=== PATIENT | female | born 1995 | race Caucasian/White ===

== ENCOUNTER → 2016-10-13 | Outpatient (CLI) | payer MEDICAID ==
--- NOTE | 2016-10-13 16:19 | RADIOLOGY REPORT (SQ) ---
EXAM DESCRIPTION: U/S OB 14+ TA/1 GEST W/DOPPLER COMPLETED DATE/TIME: 10/13/2016 3:44 pm REASON FOR STUDY: ENCOUNTER FOR SUPERVISION OF NORMAL FIRST , THIRD TRIMESTER Z34.03 ENCNT R FOR SUPRVSN OF NORMAL FIRST PREG, THIRD TRIMES COMPARISON: None. TECHNIQUE: Static and Dynamic grayscale imaging performed of gravid uterus using transabdominal appr oach. Additional selected color Doppler and spectral images recorded. All stored on PACS. LIMITATIONS: None. FINDINGS: EGA: 28 week 5 day. MARGARETH: 12/31/2016. EFW: 1231 g. PERCENTILE: 29%. YELENA: 16.8 cm. PLACENTA: Posterior. PRESENTATION: Cephalic. ANATOMY: HEART RATE: 141 beats per minute. FOUR CHAMBER HEART: Visualized. THREE VESSEL CORD: Yes. CORD INSERTION: Visualized. KIDNEYS AND BLADDER: Visualized. Appear normal. STOMACH: Visualized. Appears normal. SPINE: Normal as visualized. BRAIN AND LATERAL VENTRICLES: Visualized. Appear normal. OTHER: No other significant finding. MATERNAL ADNEXA: Maternal ovaries not visualized. CERVICAL LENGTH: Not applicable. Greater than 20 weeks. Need transvaginal study if indicated. OTHER: No other significant finding. IMPRESSION: LIVING INTRAUTERINE . ESTIMATED GESTATIONAL AGE 28 WEEK 5 DAY. NO VISUALIZED ANOMALIES. Trimester of : Third trimester - 28 weeks to delivery. TECHNICAL DOCUMENTATION: JOB ID: [id number] [employer]- All Rights Reserved
== END ==
LOC: RAD 14:29
PROVIDERS: ATTEND Nurse Practitioner Women's Health
DX: Z34.03 Encounter for supervision of normal first pregnancy, third trimester (principal)
CPT/HCPCS: 76805; 93976

== ENCOUNTER 2017-01-07 08:32 | Inpatient (IN) | payer MEDICAID ==
[2017-01-07 09:36] LABS: HEMATOCRIT 28.3 % (36.0-47.0); HEMOGLOBIN 9.6 g/dL (12.0-15.5); HGB HCT DIFFERENCE 0.5; MEAN CORPUSCULAR HEMOGLOBIN 27.6 pg (27.0-33.4); MEAN CORPUSCULAR HGB CONC 33.9 g/dL (32.0-36.0); MEAN CORPUSCULAR VOLUME 81 fl (80-97); RED BLOOD COUNT 3.48 10^6/uL (3.72-5.28); RED CELL DISTRIBUTION WIDTH 16.1 % (11.5-14.0); WHITE BLOOD COUNT 10.6 10^3/uL (4.0-10.5)
[2017-01-07] MEDS ORDERED: OXYTOCIN/NORMAL SALINE 20 UNIT/1,000 ML RTUINJ ONE ×2 (09:51→21:03)
[2017-01-07] MEDS: OXYTOCIN/NORMAL SALINE 20 UNIT/1,000 ML RTUINJ IV PRN (09:54)
[2017-01-07 10:08] LABS: APPEARANCE,URINE CLEAR; BILIRUBIN,URINE NEGATIVE (NEGATIVE); GLUCOSE, URINE NEGATIVE (NEGATIVE); KETONES,URINE NEGATIVE (NEGATIVE); LEUKOCYTE ESTERASE,URINE SMALL (NEGATIVE); NITRITE,URINE NEGATIVE (NEGATIVE); PROTEIN,URINE NEGATIVE (NEGATIVE); UROBILINOGEN,URINE NEGATIVE mg/dL (<2.0)
[2017-01-07 10:43] LABS: URINE BARBITURATES SCREEN NEGATIVE; URINE METHADONE SCREEN NEGATIVE; URINE OPIATES LOW NEGATIVE; URINE PHENCYCLIDINE SCREEN NEGATIVE
--- NOTE | 2017-01-07 14:01 | L&D Progress Notes ---
PROGRESS NOTES Datetime Report Generated by CPN: 01/07/2017 14:01 PROGRESS NOTE Impression: Reassuring Heart Rate Procedures: Artificial ROM; Sterile Vag Exam Plan: Continue Present Management; Induction Vital Signs : Reviewed Comment: coping well with ctx AROM, clear Pitocin on 20 mu VAGINAL EXAM Dilatation: 3 Dilatation: 2 Effacement: 80 Effacement: 80 Station: 0 Station: 0 Contractions: 1-2 Contractions: rare MEMBRANES Membranes: Ruptured Membranes: Intact Amniotic Fluid Color: Clear FETUS A FHR - Baseline: 135 Monitoring: External US Variability: Moderate 6-25bpm Accelerations: 15X15 Decelerations: None FHR Category: Category I Estimated Weight (gm): 2900 Presentation: Vertex SIGNATURE SIGNATURE: [id number] Assignment: Zita Callahan MD Signature: with User ID: [email or web address] : with User ID: [email or web address]
[2017-01-07] MEDS ORDERED: NALBUPHINE HCL INJ 10 MG/1 ML AMPULE ONE ×2 (15:28→15:33)
[2017-01-07] MEDS ORDERED: PROMETHAZINE HCL INJ 25 MG/1 ML VIAL ONE (15:28)
[2017-01-07] MEDS ORDERED: PROMETHAZINE HCL INJ 25 MG/1 ML VIAL IV ONE (15:29)
[2017-01-07] MEDS ORDERED: NALBUPHINE HCL INJ 10 MG/1 ML AMPULE INJ ONE (15:29)
[2017-01-07] MEDS ORDERED: EPHEDRINE SULFATE INJ 50 MG/1 ML AMPULE ONE (16:23)
[2017-01-07] MEDS ORDERED: FENTANYL/BUPIVACAINE/NS/PF 200 MCG/100 ML RTUINJ EPI ONE (16:24)
[2017-01-07] MEDS ORDERED: BUPIVACAINE HCL 0.25 % INJ/PF (2.5 MG/1 ML) 30 ML VIAL ONE (16:24)
[2017-01-07] MEDS ORDERED: LIDOCAINE 1% INJ-PF (10 MG/ML) 30 ML SDV ONE (21:03)
[2017-01-07] MEDS ORDERED: MISOPROSTOL 0.2 MG TABLET ONE (21:03)
[2017-01-07] MEDS ORDERED: DIPHENHYDRAMINE HCL 50 MG/ML VIAL IV ONE (23:07)
[2017-01-07] MEDS ORDERED: DIPHENHYDRAMINE HCL 50 MG/ML VIAL ONE (23:11)
[2017-01-07] MEDS: RINGERS SOLUTION,LACTATED 1,000 ML IV PRN (23:12)
[2017-01-08] MEDS ORDERED: DIPHENHYDRAMINE HCL 50 MG/ML VIAL IV ONE (02:50)
[2017-01-08] MEDS ORDERED: DIPHENHYDRAMINE HCL 50 MG/ML VIAL ONE (02:59)
[2017-01-08] MEDS ORDERED: FENTANYL/BUPIVACAINE/NS/PF 200 MCG/100 ML RTUINJ EPI ONE (04:08)
[2017-01-08] MEDS ORDERED: ACETAMINOPHEN 325 MG TABLET ONE (05:53)
[2017-01-08] MEDS ORDERED: PENICILLIN G-K 5 MILLION UNIT VIAL ONE (08:03)
[2017-01-08] MEDS: OXYTOCIN/NORMAL SALINE 20 UNIT/1,000 ML RTUINJ IV PRN (08:46)
[2017-01-08] MEDS: RINGERS SOLUTION,LACTATED 1,000 ML IV PRN (08:48)
[2017-01-08] MEDS ORDERED: FENTANYL CITRATE INJ/PF 100 MCG/2 ML AMPUL ONE (10:51)
[2017-01-08] MEDS ORDERED: LIDOCAINE 1% INJ-PF (10 MG/ML) 30 ML SDV ONE (10:58)
[2017-01-08 11:22] LABS: ARTERIAL BLOOD BASE EXCESS -10.6 mmol/L
[2017-01-08] MEDS ORDERED: FENTANYL CITRATE INJ/PF 100 MCG/2 ML AMPUL IV PRN (11:32)
[2017-01-08] MEDS ORDERED: IBUPROFEN 800 MG TABLET ONE (13:09)
[2017-01-08] MEDS ORDERED: BENZOCAINE/MENTHOL AEROSOL SPRAY 56 ML ONE (14:29)
[2017-01-08] MEDS ORDERED: BENZOCAINE/MENTHOL AEROSOL SPRAY 56 ML TOP PRN (15:04)
[2017-01-08] MEDS ORDERED: DIPH/PERTUSS(ACELL)/TETANUS VAC/PF 0.5 ML SYR (>=10YO) IM PRN (15:04)
[2017-01-08] MEDS ORDERED: MEASLES,MUMPS&RUBELLA VACC/PF 0.5 ML VIAL SUBCUT PRN (15:04)
[2017-01-08] MEDS ORDERED: OXYTOCIN/NORMAL SALINE 20 UNIT/1,000 ML RTUINJ IV PRN (15:04)
[2017-01-08] MEDS ORDERED: DIBUCAINE 1% OINTMENT 28 GM TP PRN (15:04)
[2017-01-08] MEDS ORDERED: ACETAMINOPHEN WITH CODEINE #3 TABLET PO PRN (15:04)
[2017-01-08] MEDS ORDERED: ZOLPIDEM TARTRATE 5 MG TABLET PO PRN (15:04)
--- NOTE | 2017-01-08 15:20 | Admission Physical ---
Datetime Report Generated by CPN: 01/08/2017 15:19 CURRENT ADMISSION Hx Assessment: The History has been Reviewed and is Current Chief Complaint: Scheduled Induction of Labor Indication for Induction: Post Dates Indication for Induction: Term, Intrauterine ; No Active Labor; Intact Membranes; Induction of Labor Admit Plan: Admit to Unit; Initiate Labor Induction Protocol ALLERGIES Medication Allergies: No Medication Allergies: No Known Allergies (01/07/2017) Medication Allergies: No Known Allergies (04/18/2014) Latex: No Latex Allergies OBSTETRICAL HISTORY EDC: 12/31/2016 00:00 : 1 Para: 0 Gestational Diabetes: No Rh Sensitization: No Incompetent Cervix: No ARIANNA: No Infertility: No ART Treatment: No Uterine Anomaly: No IUGR: No Hx Previous C/S: No Macrosomia: No Hx Loss/Stillborn: No PIH: No Hx : No Placenta Previa/Abruption: No Depression/PP Depression: No PTL/PROM: No Post Hemorrhage: No Current Procedures: Ultrasound; NST Obstetrical History Comments: G1: current SEE RECORDS Alcohol: No Marijuana : No Cocaine: No Other Illicit Drugs: No Cigarettes: Current Everyday Smoker. [id number] Cigarette Frequency: < 5 per day Advised to Stop: Yes MEDICAL HISTORY Diabetes: No Blood Transfusion: No Pulmonary Disease (Asthma, TB): No Breast Disease: No Hypertension: No Concrete Saw Operator Surgery: No Heart Disease: No Hosp/Surgery: Yes Autoimmune Disorder: No Anesthetic Complications: No Kidney Disease: No Abnormal Pap Smear: No Neuro/Epilepsy: No Psychiatric Disorders: No Other Medical Diseases: No Hepatitis/Liver Disease: No Significant Family History: No Varicosities/Phlebitis: No Trauma/Violence : No Thyroid Dysfunction: No Medical History Comments: pneumonia 2016 INFECTIOUS HISTORY Gonorrhea: No Genital Herpes: No Chlamydia: No Tuberculosis: No Syphilis: No Hepatitis: No HIV/AIDS Exposure: No Rash or Viral Illness: No HPV: No PHYSICAL EXAM General: Normal HEENT: Normal Neurologic: Normal Thyroid: Deferred Heart: Normal Lungs: Normal Breast: Normal Back: Normal Abdomen: Normal Genitourinary Exam: Normal Extremities: Normal DTRs: Normal Pelvic Type: Adequate Vital Signs: Reviewed VAGINAL EXAM Dilatation: 3 Dilatation: 2 Effacement: 80 Effacement: 80 Station: 0 Station: 0 Contraction Comments: 1-2 Contraction Comments: rare MEMBRANES Membranes: Ruptured Membranes: Intact Amniotic Fluid Color: Clear FETUS A EGA: 41.0 Monitoring: External US FHR- Baseline: 135 Variability: Moderate 6-25bpm Accelerations: 15X15 Decelerations: None FHR Category: Category I Estimated Weight (gm): 2900 Presentation: Vertex Admit Comment: Pt late to care, started @ [facility] at 28w, dated by 28 w sono not c/w lmp GBS negative varicella non-immune smoker admit to L _ D Pitocin for induction PLANS FOR LABOR AND DELIVERY Labor and Delivery: None Pain Management: Epidural Feeding Preference: Breast Benefit of Breast Feed Discussed: Yes Circumcision: Yes INFORMED CONSENT Assignment: Zita Callahan MD Signature: with User ID: Mandi : with User ID: [email or web address]
[2017-01-08] MEDS ORDERED: IBUPROFEN 800 MG TABLET PO ONE (15:30)
[2017-01-08] MEDS ORDERED: INFLUENZA ADLT QUAD (36MOS+) 2017-18 VAC 0.5 ML SYR IM PRN (16:00)
[2017-01-08] MEDS: DOCUSATE SODIUM 100 MG CAPSULE PO SCH (17:11)
[2017-01-08] MEDS: FERROUS SULFATE 325 MG TABLET PO SCH (17:12)
[2017-01-08] MEDS: ACETAMINOPHEN WITH CODEINE #3 TABLET PO PRN ×2 (18:57→23:00)
[2017-01-08] MEDS: IBUPROFEN 800 MG TABLET PO SCH (22:52)
[2017-01-09] MEDS: IBUPROFEN 800 MG TABLET PO SCH ×3 (06:02→21:14)
[2017-01-09 07:38] LABS: HGB HCT DIFFERENCE -0.7; MEAN CORPUSCULAR HEMOGLOBIN 26.7 pg (27.0-33.4); MEAN CORPUSCULAR HGB CONC 32.3 g/dL (32.0-36.0); MEAN CORPUSCULAR VOLUME 83 fl (80-97); RED BLOOD COUNT 2.67 10^6/uL (3.72-5.28); RED CELL DISTRIBUTION WIDTH 16.2 % (11.5-14.0)
[2017-01-09 07:55] LABS: WHITE BLOOD COUNT 21.8 10^3/uL (4.0-10.5)
[2017-01-09 08:05] LABS: HEMOGLOBIN 7.1 g/dL (12.0-15.5)
[2017-01-09] MEDS: SENNOSIDES/DOCUSATE 8.6-50 MG 1 EACH TABLET PO SCH (09:36)
[2017-01-09] MEDS: DOCUSATE SODIUM 100 MG CAPSULE PO SCH ×2 (09:36→18:29)
[2017-01-09] MEDS: PRENATAL VITAMIN W-O CA NO5/FE FUMARATE/FA CAPSULE PO SCH (09:36)
[2017-01-09] MEDS: FERROUS SULFATE 325 MG TABLET PO SCH ×2 (09:36→18:29)
--- NOTE | 2017-01-09 10:13 | PDOC PROGRESS REPORT ---
Subjective-OB Subjective: Post Delivery Day: 1 21 year old. Denies any needs at this time, states lochia is stable, pain is well controlled, voiding without difficulty, passing gas, tolerating diet. Physical Exam (OB) Vital Signs: Temp Pulse Resp BP Pulse Ox 97.8 F 95 16 107/62 100 01/09/17 07:49 01/09/17 07:49 01/09/17 07:49 01/09/17 07:49 01/09/17 07:49 Intake & Output 01/08/17 01/09/17 01/10/17 06:59 06:59 06:59 Weight 57.9 kg - Lochia Lochia Amount: Scant < 10 ml Lochia Color: Rubra/Red - Abdomen Description: Soft Hernia Present: No Fundal Description: Firm, Midline Fundal Height: u/u - u/2 Objective-Diagnostic Laboratory: 01/09/17 07:22 01/08/17 01/09/17 10:22 07:22 WBC 21.8 H D RBC 2.67 L Hgb 7.1 L D Hct 22.0 L MCV 83 MCH 26.7 L MCHC 32.3 RDW 16.2 H Plt Count 384 Carbonic Acid 1.15 HCO3/H2CO3 Ratio 13:1 ABG pH 7.24 L ABG pCO2 38.2 ABG pO2 21.2 L* ABG HCO3 16.0 L ABG O2 Saturation 28.0 L ABG Base Excess -10.6 FiO2 CORD BLOOD Assessment and Plan(PN) - Assessment and Plan (1) Vaginal delivery Is this a current diagnosis for this admission?: Yes Plan: routine pp care (2) Acute blood loss anemia Is this a current diagnosis for this admission?: Yes Plan: ferrous sulfate increase dietary iron (3) IV drug abuse Is this a current diagnosis for this admission?: Yes Plan: community planner - Time Spent with Patient Time with patient: Less than 15 minutes Critical Time spent with patient: Less than 15 minutes Medications reviewed and adjusted accordingly: Yes - Disposition Anticipated Discharge: Home Within: within 24 hours
[2017-01-10] MEDS: IBUPROFEN 800 MG TABLET PO SCH (05:54)
[2017-01-10 08:47] VITALS: BP 112/67
--- NOTE | 2017-01-10 09:16 | PDOC DISCHARGE SUMMARY ---
Final Diagnosis Discharge Date: 01/10/17 - Final Diagnosis (1) Vaginal delivery Is this a current diagnosis for this admission?: Yes (2) Acute blood loss anemia Is this a current diagnosis for this admission?: Yes (3) IV drug abuse Is this a current diagnosis for this admission?: Yes Discharge Data - Discharge Medication Home Medications: No122/Iron/Folic Acid [ Multi Tablet] 1 tab PO DAILY 01/07/17 Docusate Sodium [Colace 100 mg Capsule] 100 mg PO BID #60 capsule 01/10/17 Ferrous Sulfate [Feosol 325 mg Tablet] 325 mg PO BID #60 tablet 01/10/17 Ibuprofen [Motrin 800 mg Tablet] 800 mg PO Q8 #60 tablet 01/10/17 Gestational Age: 41.1 Reason(s) for Admission: Induction of Labor Procedures: NST Intrapartum Procedure(s): Spontaneous Vaginal Delivery Complication(s): Laceration-Labial Laceration-Degree: 1st - Data Baby 1 Male at 1 minute: 2 at 5 minutes: 8 Weight: 3650 kg Home with Mother: Yes Complications: No - Diagnosis Test Laboratory: Temp Pulse Resp BP Pulse Ox 98.2 F 92 14 112/67 100 01/10/17 08:00 01/10/17 08:00 01/10/17 08:00 01/10/17 08:00 01/10/17 08:00 01/07/17 01/07/17 01/09/17 09:10 09:55 07:22 RBC 3.48 L 2.67 L Hgb 9.6 L 7.1 L D Hct 28.3 L 22.0 L Urine Opiates Screen NEGATIVE - Discharge information/Instructions Discharge Activity: Activity As Tolerated, Pelvic Rest, No tub bath Discharge Diet: Regular Disposition: HOME, SELF-CARE Follow up with: [facility] in: 4, Weeks
[2017-01-10] MEDS: SENNOSIDES/DOCUSATE 8.6-50 MG 1 EACH TABLET PO SCH (10:06)
[2017-01-10] MEDS: DOCUSATE SODIUM 100 MG CAPSULE PO SCH (10:06)
[2017-01-10] MEDS: PRENATAL VITAMIN W-O CA NO5/FE FUMARATE/FA CAPSULE PO SCH (10:07)
[2017-01-10] MEDS: FERROUS SULFATE 325 MG TABLET PO SCH (10:07)
--- NOTE | 2017-01-14 17:12 | Delivery Summary ---
Del Sum A-C Datetime Report Generated by CPN: 01/14/2017 17:12 DELIVERY PERSONNEL DELIVERY PERSONNEL: [id number] Delivery Doctor:: Francine Tam CNM Labor and Delivery Nurse:: Joselito Davis RNcredit associate Nurse:: Maribel Ojeda RN Die Engraver:: Dr. Ravin Kline Nurse Practitioner:: CHARANJIT Miranda Agricultural Extension Agent/COMPONENT DESIGN ENGINEER: Isabel Beal CNA II Agricultural Extension Agent/COMPONENT DESIGN ENGINEER: Em Flood, PEDIGREE TRACER Additional Personnel: : Haley Tilley, RNC MATERNAL INFORMATION Delivery Anesthesia: Epidural Medications After Delivery: Pitocin Bolus-Please Comment; Pitocin Drip 20 Units/1000ml NSS; Other-Please Comment Estimated Blood Loss (ml): 450 Maternal Complications: Maternal Fever Provider Comments: SVDVM over vaginal laceration, ESTELLA with compound Rt hand, unable to deliver rt arm with moderate force. Attempted delivery of ant shoulder and posterior shoulder with suprapubic pressure, attempted delivery of Rt hand again, able to reach baby's elbow but unable to deliver hand. Delivery of post should after multiple attempts. Terminal mec noted, cord clamped and cut immediately and handed off for ressucitation. Cord blood and Cord gas collected. Attempted delivery of placenta, then repaired lacerations with lidocaine. Placenta then delivered spont and via chinchilla, FF immediately but excessive bleeding noted. Was then able to visualize 3-4 cm cervical laceration at 3 o'clock, applied spong and held pressure until bleeding stabilized. Dr. Gallegos to room for repair of cervix. EBL 450. Apgars 2,8, baby taken to NICU for evaluation. Mother hemodynamically stable upon leaving the room. LABOR SUMMARY EDC: 12/31/2016 00:00 No. Babies in Womb: 1 Attempted: No Labor Anesthesia: Epidural LABOR INFORMATION Reason for Induction: Post Dates Onset of Labor: 01/07/2017 13:56 Complete Dilatation: 01/08/2017 08:33 Oxytocin: Induction Group B Beta Strep: negative Antibiotics # of Doses: 1 Antibiotics Time of Last Dose: 0805 Name of Antibiotic Given: PCN Steroids Given: None Reason Steroids Not Administered: Not Applicable MEMBRANES Membranes Rupture Method: Artificial Rupture of Membranes: 01/07/2017 13:56 Length of Rupture (hr): 20.43 Amniotic Fluid Color: Clear Amniotic Fluid Amount: Small Amniotic Fluid Odor: Normal STAGES OF LABOR Stage 1 hr: 18 Stage 1 min: 37 Stage 2 hr: 1 Stage 2 min: 49 Stage 3 hr: 0 Stage 3 min: 19 Total Time in Labor hr: 20 Total Time in Labor min: 45 VAGINAL DELIVERY Episiotomy: None Laceration #1: Vaginal Laceration Extension #1: First Degree Other Laceration: labial Laceration Repair: Yes Laceration Repair Note: rt labia 1* lac repaired with chromic and lidocaine 1* vaginal repaired with chromic Dr. Gallegos called to repair cervix, 3-4 cm laceration at 3o'clock Sponge Count Correct: N/A Sharps Count Correct: Yes CSECTION DELIVERY Primary Indication: N/A Secondary Indication: N/A CSection Incidence: N/A Labor: N/A Elective: N/A CSection Incision: N/A BABY A INFORMATION Infant Delivery Date/Time: 01/08/2017 10:22 Method of Delivery: Vaginal Born in Route : No : N/A Forceps: N/A Vacuum Extraction: N/A Shoulder Dystocia : Yes SHOULDER DYSTOCIA BABY A Delivery of Head: 01/08/2017 10:19 Time Head to Delivery : 3.0 1st Intervention to Resolve: McRobert's Maneuver 2nd Intervention to Resolve: Suprapubic Pressure 3rd Intervention to Resolve: Posterior Arm Release Verify NO Fundal Pressure: No Fundal Pressure Applied Arm Under Symphisis at Del: Left Shoulder Dystocia Comments: actual time from head to body delivery was 2 min and 45 sec. PRESENTATION/POSITION BABY A Presentation: Cephalic Cephalic Presentation: Vertex Vertex Position: OA with compound hand Breech Presentation: N/A PLACENTA INFORMATION BABY A Placenta Delivery Time : 01/08/2017 10:41 Placenta Method of Delivery: Spontaneous Placenta Status: Delivered SCORES BABY A Heart Rate 1 min: >100 bpm Resp Effort 1 min: Absent Reflex Irritability 1 min: No Response Muscle Tone 1 min: Flaccid Color 1 min: Blue/Pale Resuscitation Effort 1 min: Tactile Stimulation; Oxygen; PPV/NCPAP SCORE 1 MIN: 2 Heart Rate 5 min: >100 bpm Resp Effort 5 min: Good Cry Reflex Irritability 5 min: Cough or Sneeze or Pulls Away Muscle Tone 5 min: Some Flexion of Extremities Color 5 min: Body Colon, Extremities Blue Resuscitation Effort 5 min: Tactile Stimulation SCORE 5 MIN: 8 INFANT INFORMATION BABY A Gestational Age at Delivery: 41.1 Gestational Status: Late Term- 41- 41.6 Weeks Infant Outcome : Liveborn Condition : Stable Infant Sex: Male IDENTIFICATION BABY A Infant Verification Date/Time: 01/08/2017 11:07 ID Band Number: [id number] Mother's Name Verified: Yes Infant RN Verifying Infant: Paulette BowieSAUMYA. Luek, SAUMYA WEIGHT/LENGTH BABY A Birthweight (gm): 3650 Weight (lb): 8 Weight (oz): 1 Length (in): 21.50 Infant Length (cm): 54.61 CORD INFORMATION BABY A No. Cord Vessels: 3 Nuchal Cord : N/A Cord Blood Taken: Yes-For Storage (Mom's Blood type +) Suction: Mouth; Nose ASSESSMENT BABY A Infant Complications: Shoulder Dystocia Physical Findings at Delivery: Caput Succedaneum; Molding of the Head Skin to Skin: No Skin to Skin: No Die Engraver/ALS Called : Yes Infant Care By: Alan Castano/ Alan Wyatt SALES AND MARKETING DIRECTOR Transferred To: Nursery BABY B INFORMATION : N/A SIGNATURES Assignment: Zach Gallegos MD Signature: with User ID: [email or web address] : I was personally available for consultation and serving as supervising physician for the MLP.
--- NOTE | 2017-01-15 10:45 | Delivery Summary ---
Del Sum A-C Datetime Report Generated by CPN: 01/15/2017 10:45 DELIVERY PERSONNEL DELIVERY PERSONNEL: [id number] Delivery Doctor:: Francine Tam CNM Labor and Delivery Nurse:: Joselito Davis RNdustless operator Nurse:: Maribel Ojeda RN Pug Machine Operator:: Dr. Ravin Kline Nurse Practitioner:: CHARANJIT Miranda Freight Car Inspector/PROPERTY ECONOMIST: Isabel Beal CNA II Freight Car Inspector/PROPERTY ECONOMIST: Em Flood, HOSPITALITY AIDE Additional Personnel: : Haley Tilley, RNC MATERNAL INFORMATION Delivery Anesthesia: Epidural Medications After Delivery: Pitocin Bolus-Please Comment; Pitocin Drip 20 Units/1000ml NSS; Other-Please Comment Estimated Blood Loss (ml): 450 Maternal Complications: Maternal Fever Provider Comments: SVDVM over vaginal laceration, ESTELLA with compound Rt hand, unable to deliver rt arm with moderate force. Attempted delivery of ant shoulder and posterior shoulder with suprapubic pressure, attempted delivery of Rt hand again, able to reach baby's elbow but unable to deliver hand. Delivery of post should after multiple attempts. Terminal mec noted, cord clamped and cut immediately and handed off for ressucitation. Cord blood and Cord gas collected. Attempted delivery of placenta, then repaired lacerations with lidocaine. Placenta then delivered spont and via chinchilla, FF immediately but excessive bleeding noted. Was then able to visualize 3-4 cm cervical laceration at 3 o'clock, applied spong and held pressure until bleeding stabilized. Dr. Gallegos to room for repair of cervix. EBL 450. Apgars 2,8, baby taken to NICU for evaluation. Mother hemodynamically stable upon leaving the room. LABOR SUMMARY EDC: 12/31/2016 00:00 No. Babies in Womb: 1 Attempted: No Labor Anesthesia: Epidural LABOR INFORMATION Reason for Induction: Post Dates Onset of Labor: 01/07/2017 13:56 Complete Dilatation: 01/08/2017 08:33 Oxytocin: Induction Group B Beta Strep: negative Antibiotics # of Doses: 1 Antibiotics Time of Last Dose: 0805 Name of Antibiotic Given: PCN Steroids Given: None Reason Steroids Not Administered: Not Applicable MEMBRANES Membranes Rupture Method: Artificial Rupture of Membranes: 01/07/2017 13:56 Length of Rupture (hr): 20.43 Amniotic Fluid Color: Clear Amniotic Fluid Amount: Small Amniotic Fluid Odor: Normal STAGES OF LABOR Stage 1 hr: 18 Stage 1 min: 37 Stage 2 hr: 1 Stage 2 min: 49 Stage 3 hr: 0 Stage 3 min: 19 Total Time in Labor hr: 20 Total Time in Labor min: 45 VAGINAL DELIVERY Episiotomy: None Laceration #1: Vaginal Laceration Extension #1: First Degree Other Laceration: labial Laceration Repair: Yes Laceration Repair Note: rt labia 1* lac repaired with chromic and lidocaine 1* vaginal repaired with chromic Dr. Gallegos called to repair cervix, 3-4 cm laceration at 3o'clock Sponge Count Correct: N/A Sharps Count Correct: Yes CSECTION DELIVERY Primary Indication: N/A Secondary Indication: N/A CSection Incidence: N/A Labor: N/A Elective: N/A CSection Incision: N/A BABY A INFORMATION Infant Delivery Date/Time: 01/08/2017 10:22 Method of Delivery: Vaginal Born in Route : No : N/A Forceps: N/A Vacuum Extraction: N/A Shoulder Dystocia : Yes SHOULDER DYSTOCIA BABY A Delivery of Head: 01/08/2017 10:19 Time Head to Delivery : 3.0 1st Intervention to Resolve: McRobert's Maneuver 2nd Intervention to Resolve: Suprapubic Pressure 3rd Intervention to Resolve: Posterior Arm Release Verify NO Fundal Pressure: No Fundal Pressure Applied Arm Under Symphisis at Del: Left Shoulder Dystocia Comments: actual time from head to body delivery was 2 min and 45 sec. PRESENTATION/POSITION BABY A Presentation: Cephalic Cephalic Presentation: Vertex Vertex Position: OA with compound hand Breech Presentation: N/A PLACENTA INFORMATION BABY A Placenta Delivery Time : 01/08/2017 10:41 Placenta Method of Delivery: Spontaneous Placenta Status: Delivered SCORES BABY A Heart Rate 1 min: >100 bpm Resp Effort 1 min: Absent Reflex Irritability 1 min: No Response Muscle Tone 1 min: Flaccid Color 1 min: Blue/Pale Resuscitation Effort 1 min: Tactile Stimulation; Oxygen; PPV/NCPAP SCORE 1 MIN: 2 Heart Rate 5 min: >100 bpm Resp Effort 5 min: Good Cry Reflex Irritability 5 min: Cough or Sneeze or Pulls Away Muscle Tone 5 min: Some Flexion of Extremities Color 5 min: Body [place], Extremities Blue Resuscitation Effort 5 min: Tactile Stimulation SCORE 5 MIN: 8 INFANT INFORMATION BABY A Gestational Age at Delivery: 41.1 Gestational Status: Late Term- 41- 41.6 Weeks Infant Outcome : Liveborn Condition : Stable Infant Sex: Male IDENTIFICATION BABY A Infant Verification Date/Time: 01/08/2017 11:07 ID Band Number: [id number] Mother's Name Verified: Yes Infant RN Verifying Infant: Paulette BowieSAUMYA. Luke, SAUMYA WEIGHT/LENGTH BABY A Birthweight (gm): 3650 Weight (lb): 8 Weight (oz): 1 Length (in): 21.50 Infant Length (cm): 54.61 CORD INFORMATION BABY A No. Cord Vessels: 3 Nuchal Cord : N/A Cord Blood Taken: Yes-For Storage (Mom's Blood type +) Suction: Mouth; Nose ASSESSMENT BABY A Infant Complications: Shoulder Dystocia Physical Findings at Delivery: Caput Succedaneum; Molding of the Head Skin to Skin: No Skin to Skin: No Pug Machine Operator/ALS Called : Yes Infant Care By: Alan Castano/ Alan Wyatt BARRATTE OPERATOR Transferred To: Nursery BABY B INFORMATION : N/A SIGNATURES Assignment: Zach Gallegos MD Signature: with User ID: [email or web address] : I was personally available for consultation and serving as supervising physician for the MLP.
== END 2017-01-10 13:14 | disposition home or self-care (01) | DRG 775 ==
LOC: LR 08:32 → 2N 01-08 15:15
PROVIDERS: ADMIT Student in an Organized Health Care Education/Training Program; ATTEND Obstetrics & Gynecology
PROC: 10E0XZZ Delivery of Products of Conception, External Approach (ICD-10-PCS; principal; 2017-01-07)
PROC: 0UQC7ZZ Repair Cervix, Via Natural or Artificial Opening (ICD-10-PCS; 2017-01-07)
PROC: 3E0P3VZ Introduction of Hormone into Female Reproductive, Percutaneous Approach (ICD-10-PCS; 2017-01-07)
PROC: 10907ZC Drainage of Amniotic Fluid, Therapeutic from Products of Conception, Via Natural or Artificial Opening (ICD-10-PCS; 2017-01-07)
PROC: 4A1HXCZ Monitoring of Products of Conception, Cardiac Rate, External Approach (ICD-10-PCS; 2017-01-07)
PROC: 0HQ9XZZ Repair Perineum Skin, External Approach (ICD-10-PCS; 2017-01-07)
DX: O66.0 Obstructed labor due to shoulder dystocia (principal); D62 Acute posthemorrhagic anemia; O99.324 Drug use complicating childbirth; O71.3 Obstetric laceration of cervix; O48.0 Post-term pregnancy; O99.334 Smoking (tobacco) complicating childbirth; F17.210 Nicotine dependence, cigarettes, uncomplicated; F11.90 Opioid use, unspecified, uncomplicated; O32.6XX0 Maternal care for compound presentation, not applicable or unspecified; O77.0 Labor and delivery complicated by meconium in amniotic fluid; O70.0 First degree perineal laceration during delivery; O99.02 Anemia complicating childbirth; Z3A.41 41 weeks gestation of pregnancy; Z37.0 Single live birth
CPT/HCPCS: 36415; 80307; 81005; 82803; 85027; 86592; 86850; 86900; 86901; 88307; J1200; J2300; J2540; J2550; J2590; J3010; J3490

== ENCOUNTER 2017-11-05 22:06 | Emergency (ER) | payer MEDICAID ==
[2017-11-05] MEDS ORDERED: PREDNISONE 20 MG TABLET PO ONE (22:17)
[2017-11-05] MEDS ORDERED: IPRATROPIUM/ALBUTEROL 0.5-2.5 MG/3 ML AMPUL NEB ONE (22:17)
--- NOTE | 2017-11-05 22:59 | ER Document Report ---
ED General - General Chief Complaint: Breathing Difficulty Stated Complaint: COUGH Time Seen by Provider: 11/05/17 22:33 Notes: 22-year-old female presents emergency department complaining of cough, wheezing , shortness of breath and chest pain for the past several days. She denies any fever and states that the cough is only been mildly productive. States it feels similar to the last time she had pneumonia. States that she does not have a history of asthma however she has a history of wheezing and that in the past she has used her sister's inhaler to help with her wheezing. She has not tried it for this episode. TRAVEL OUTSIDE OF THE [place] IN LAST 30 DAYS: No - Related Data Allergies/Adverse Reactions: No Known Allergies Allergy (Verified 01/07/17 08:51) Past Medical History - General Information source: Patient - Social History Smoking Status: Current Some Day Smoker Frequency of alcohol use: None Drug Abuse: None Family History: Other - Sister with asthma Patient has suicidal ideation: No Patient has homicidal ideation: No Renal/ Medical History: Denies: Hx Peritoneal Dialysis Psychiatric Medical History: Reports: Hx Depression - Immunizations Immunizations up to date: Yes Hx Diphtheria, Pertussis, Tetanus Vaccination: No Review of Systems - Review of Systems Constitutional: No symptoms reported EENT: No symptoms reported Cardiovascular: See HPI Respiratory: See HPI -: Yes All other systems reviewed and negative Physical Exam - Vital signs Vitals: Temp Pulse Resp BP Pulse Ox 98 F 106 H 22 H 120/68 94 11/05/17 22:13 11/05/17 22:13 11/05/17 22:13 11/05/17 22:13 11/05/17 22:13 Interpretation: Tachycardic - Notes Notes: GENERAL: Alert, interacts well. No acute distress. HEAD: Normocephalic, atraumatic EYES: Pupils equal, round and reactive to light, extraocular movements intact. ENT: Oral mucosa moist, tongue midline. NECK: Full range of motion, supple, trachea midline. LUNGS: No respiratory distress however she does have inspiratory squeaking, inspiratory rhonchi and expiratory wheezing. Nonproductive cough. HEART: Regular rate and rhythm, no murmurs, gallops, rubs. ABDOMEN: Soft, nontender, nondistended, bowel sounds present in all 4 quadrants. EXTREMITIES: Moves all 4 extremities spontaneously, no edema. No cyanosis. NEUROLOGICAL: Alert and oriented x3, normal speech. PSYCH: Normal mood, normal affect. SKIN: Warm, Dry, normal turgor, no rashes or lesions noted. Course - Re-evaluation Re-evalutation: 11/06/17 00:51 Chest x-ray shows no acute process, after 3 breathing treatments she has decreased but not completely resolved wheezing, she is not tachypneic and she is not hypoxic. She is afebrile. No indication for antibiotics at this time. Patient will be treated with steroids and albuterol inhaler and discharged home. She will be given a prescription of dlbm-quy-csu antibiotics, should she develop a fever or not have improvement within the next 3 days she should fill her prescription of Augmentin. - Vital Signs Vital signs: Temp Pulse Resp BP Pulse Ox 98 F 106 H 22 H 120/68 94 11/05/17 22:13 11/05/17 22:13 11/05/17 22:13 11/05/17 22:13 11/05/17 22:13 Discharge - Discharge Clinical Impression: Acute wheezy bronchitis Condition: Stable Disposition: HOME, SELF-CARE Additional Instructions: Please use the inhaler 2 puffs every 4 hours as needed. Take the steroids as directed until they are gone. If you develop a fever or if you are not feeling better in 3 days please start taking the antibiotics. Prescriptions: Albuterol Sulfate [Proair HFA Inhalation Aerosol 8.5 gm MDI] 2 puff IH Q4H PRN # 1 mdi PRN Reason: Amox Tr/Potassium Clavulanate [Augmentin 875-125 Tablet] 1 tab PO BID 7 Days tablet Prednisone [Deltasone 20 mg Tablet] 2 tab PO DAILY 5 Days tablet Forms: Parent Work Note Referrals: SOLOMON BARTON MD [ACTIVE STAFF] - Follow up as needed
[2017-11-05] MEDS: ALBUTEROL SULFATE 0.083% NEB 2.5 MG/3 ML AMPUL NEB SCH (23:46)
--- NOTE | 2017-11-06 00:37 | RADIOLOGY REPORT (SQ) ---
EXAM DESCRIPTION: XR CHEST 2 VIEWS COMPLETED DATE/TME: 11/05/2017 22:39 CLINICAL HISTORY: 22 years, Female, cough, wheeze, hypoxia COMPARISON: 10/01/2015 NUMBER OF VIEWS: Two TECHNIQUE: Two views of the chest LIMITATIONS: None. FINDINGS: The lungs are clear. The heart is normal in size. There is no pneumothorax or pleural effusion. There is no acute fracture IMPRESSION: No acute cardiopulmonary abnormality 2010 [employer]- All Rights Reserved
[2017-11-06] MEDS ORDERED: ALBUTEROL SULFATE HFA (90 MCG/PUFF) 8 GM MDI (1 MDI/ER DISP) IH ONE (00:49)
[2017-11-06 01:09] VITALS: BP 119/69
== END 2017-11-06 01:08 | disposition home or self-care (01) ==
LOC: ER 22:06
DX: J20.9 Acute bronchitis, unspecified (principal); R06.02 Shortness of breath; R07.9 Chest pain, unspecified; R05 Cough; R06.2 Wheezing; F17.200 Nicotine dependence, unspecified, uncomplicated; Z87.01 Personal history of pneumonia (recurrent); Z82.5 Family history of asthma and other chronic lower respiratory diseases
CPT/HCPCS: 94640 ×2; 99285; 71046; J7512; J3490; J7620

== ENCOUNTER 2018-02-05 21:46 | Emergency (ER) | payer MEDICAID ==
[2018-02-05] MEDS ORDERED: NALOXONE HCL INJ/PF 0.4 MG/1 ML SDV ONE (22:07)
--- NOTE | 2018-02-05 22:44 | ER Document Report ---
ED General - General Chief Complaint: Overdose Stated Complaint: POSSIBLE OVERDOSE Time Seen by Provider: 02/05/18 22:00 Cannot obtain history due to: Altered mental status Notes: Patient is a 23-year-old female with a past medical history of polysubstance abuse who presents after taking 7 of her clonazepam tablets and multiple extra doses of kratom shortly prior to arrival. Patient states that it is her birthday, she was trying to celebrate, believes she actually took too much. Her boyfriend contacted EMS and the patient was subsequently transported to the hospital. Patient denies any suicide intention behind tonight's actions. States she was just trying to feel good. She states that she has never overdosed with these medications in the past. She currently denies any complaints other than feeling tired. History is otherwise limited secondary to the patient's intoxication. TRAVEL OUTSIDE OF THE [place] IN LAST 30 DAYS: No - Related Data Allergies/Adverse Reactions: No Known Allergies Allergy (Verified 01/07/17 08:51) Past Medical History - General Information source: Patient - Social History Smoking Status: Current Every Day Smoker Chew tobacco use (# tins/day): No Frequency of alcohol use: Occasional Drug Abuse: Heroin, Prescription drugs Lives with: Spouse/Significant other Family History: Other - Sister with asthma Patient has suicidal ideation: No Patient has homicidal ideation: No Renal/ Medical History: Denies: Hx Peritoneal Dialysis Psychiatric Medical History: Reports: Hx Depression - Immunizations Immunizations up to date: Yes Hx Diphtheria, Pertussis, Tetanus Vaccination: No Review of Systems - Review of Systems Notes: Constitutional: Negative for fever. HENT: Negative for sore throat. Eyes: Negative for visual changes. Cardiovascular: Negative for chest pain. Respiratory: Negative for shortness of breath. Gastrointestinal: Negative for abdominal pain, vomiting or diarrhea. Genitourinary: Negative for dysuria. Musculoskeletal: Negative for back pain. Skin: Negative for rash. Neurological: Negative for headaches, weakness or numbness. 10 point ROS negative except as marked above and in HPI. Physical Exam - Vital signs Vitals: Temp 98.3 F 02/05/18 22:00 Interpretation: Normal Notes: PHYSICAL EXAMINATION: GENERAL: Somewhat lethargic but wakes easily to voice. HEAD: Atraumatic, normocephalic. EYES: Pupils equal round and reactive to light, extraocular movements intact, sclera anicteric, conjunctiva are normal. ENT: nares patent, oropharynx clear without exudates. Moist mucous membranes. NECK: Normal range of motion, supple without lymphadenopathy LUNGS: Breath sounds clear to auscultation bilaterally and equal. No wheezes rales or rhonchi. HEART: Regular rate and rhythm without murmurs ABDOMEN: Soft, nontender, normoactive bowel sounds. No guarding, no rebound. No masses appreciated. EXTREMITIES: Normal range of motion, no pitting or edema. No cyanosis. NEUROLOGICAL: No focal neurological deficits. Moves all extremities spontaneously and on command. PSYCH: Somewhat lethargic, appropriately interactive when woken. SKIN: Warm, Dry, normal turgor, no rashes or lesions noted. Course - Re-evaluation Re-evalutation: 02/05/18 22:43 Patient presents after an intentional misuse of clonazepam and kratom. The patient did arrive somewhat somnolent but was protecting her airway, oriented. Was given 0.4 mg of naloxone given the component of kratom with complete normalization of her mental status. She was observed for approximately 1 hour, was noted to be texting and joking with her boyfriend. The patient did wish to leave the emergency department. 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 I have emphasized that the patient had misused her medications, should seek resources and rehab. At this time will discharge with return precautions and follow-up recommendations. Verbal discharge instructions given a the bedside and opportunity for questions given. Medication warnings reviewed. Patient is in agreement with this plan and has verbalized understanding of return precautions and the need for primary care follow-up in the next 24-72 hours. - Vital Signs Vital signs: Temp Pulse Resp BP Pulse Ox 98.3 F 02/05/18 22:00 Discharge - Discharge Clinical Impression: Benzodiazepine abuse, Polysubstance abuse Overdose Qualifiers: Encounter type: initial encounter Injury intent: accidental or unintentional Qualified Code(s): T50.901A - Poisoning by unspecified drugs, medicaments and biological substances, accidental (unintentional), initial encounter Condition: Good Disposition: HOME, SELF-CARE Additional Instructions: Your seen today for an overdose on clonazepam and kratom. You should urgently seek rehab or a similar resource. You can call [phone] to find local resources. Return if you have any symptoms that are concerning to you including difficulty breathing, fever, persistent vomiting, or any other symptoms that are concerning to you.
== END 2018-02-05 22:48 | disposition home or self-care (01) ==
LOC: ER 21:46
DX: T42.4X1A Poisoning by benzodiazepines, accidental (unintentional), initial encounter (principal); F19.10 Other psychoactive substance abuse, uncomplicated; F17.200 Nicotine dependence, unspecified, uncomplicated
CPT/HCPCS: 99284

== ENCOUNTER 2018-03-11 13:27 | Emergency (ER) | payer MEDICAID ==
--- NOTE | 2018-03-11 15:01 | ER Document Report ---
HPI - HPI Patient complains to provider of: Ear pain, UTI Time Seen by Provider: 03/11/18 14:25 Onset: This morning Onset/Duration: Gradual Quality of pain: Burning Pain Level: 2 Context: Patient presents complaining of right ear pain that started today with urinary frequency and dysuria. Patient is concerned that she has a UTI. Patient denies any fever nausea or vomiting. Patient denies any concerns about STD. Associated Symptoms: Earache. denies: Fever Exacerbated by: Denies Relieved by: Denies Similar symptoms previously: Yes Recently seen / treated by doctor: No - ROS ROS below otherwise negative: Yes Systems Reviewed and Negative: Yes All other systems reviewed and negative - CONSTITUTIONAL Constitutional: DENIES: Fever - EENT EENT: REPORTS: Ear Pain - RESPIRATORY Respiratory: DENIES: Trouble Breathing, Coughing - GASTROINTESTINAL Gastrointestinal: DENIES: Abdominal Pain, Nausea - URINARY Urinary: REPORTS: Dysuria, Frequency - REPRODUCTIVE Reproductive: DENIES: :, Abnormal bleeding / discharge - DERM Skin Color: Normal Skin Problems: None Past Medical History - General Information source: Patient - Social History Smoking Status: Current Every Day Smoker Smoking Education Provided: Yes Frequency of alcohol use: None Drug Abuse: None Occupation: retail service representative Lives with: Family Family History: Reviewed & Not Pertinent, Other - Sister with asthma Patient has suicidal ideation: No Patient has homicidal ideation: No Renal/ Medical History: Denies: Hx Peritoneal Dialysis Psychiatric Medical History: Reports: Hx Depression Surgical Hx: Negative - Immunizations Immunizations up to date: Yes Hx Diphtheria, Pertussis, Tetanus Vaccination: No Vertical Provider Document - CONSTITUTIONAL Agree With Documented VS: Yes Exam Limitations: No Limitations General Appearance: WD/WN, No Apparent Distress - INFECTION CONTROL TRAVEL OUTSIDE OF THE [place] IN LAST 30 DAYS: No - HEENT HEENT: Atraumatic, Normocephalic, Tympanic Membrane Red - right, with air-fluid level, Tympanic Membrane Bulging - right. negative: Pharyngeal Exudate, Pharyngeal Tenderness, Pharyngeal Erythema - NECK Neck: Normal Inspection, Supple. negative: Lymphadenopathy-Left, Lymphadenopathy-Right - RESPIRATORY Respiratory: Breath Sounds Normal, No Respiratory Distress, Chest Non-Tender - CARDIOVASCULAR Cardiovascular: Regular Rate, Regular Rhythm, No Murmur - GI/ABDOMEN Gastrointestinal: Abdomen Soft - BACK Back: Normal Inspection. negative: CVA Tenderness-Right, CVA Tenderness-Left - MUSCULOSKELETAL/EXTREMETIES Musculoskeletal/Extremeties: MAEW - NEURO Level of Consciousness: Awake, Alert, Appropriate Motor/Sensory: No Motor Deficit - DERM Integumentary: Warm, Dry, No Rash Course - Re-evaluation Re-evalutation: 03/11/18 Discussed results of urinalysis with patient. Offered patient STD testing, patient declines at this time. Patient nontoxic in appearance no concern for sepsis. Will culture urine. Good return precautions given. Patient verbalized understanding and agrees with plan of care. - Vital Signs Vital signs: Temp Pulse Resp BP Pulse Ox 98.1 F 90 14 103/62 94 03/11/18 13:31 03/11/18 13:31 03/11/18 13:31 03/11/18 13:31 03/11/18 13:31 - Laboratory Laboratory results interpreted by me: 03/11/18 15:29 Labs- Entire Visit 03/11/18 14:45 Urine Color YELLOW Urine Appearance SLIGHTLY-CLOUDY Urine pH 5.0 Ur Specific Marshall 1.029 Urine Protein 30 H Urine Glucose (UA) NEGATIVE Urine Ketones NEGATIVE Urine Blood NEGATIVE Urine Nitrite POSITIVE H Urine Bilirubin MODERATE H Urine Urobilinogen 2.0 H Ur Leukocyte Esterase MODERATE H Urine WBC (Auto) 8 Urine RBC (Auto) 0 Urine Bacteria (Auto) TRACE Squamous Epi Cells Auto 4 Urine Mucus (Auto) MANY Urine Ascorbic Acid 40 H Urine HCG, Qual NEGATIVE Discharge - Discharge Clinical Impression: Otitis media Qualifiers: Otitis media type: unspecified Chronicity: acute Qualified Code(s): H66.90 - Otitis media, unspecified, unspecified ear UTI (urinary tract infection) Qualifiers: Urinary tract infection type: site unspecified Hematuria presence: without hematuria Qualified Code(s): N39.0 - Urinary tract infection, site not specified Condition: Stable Disposition: HOME, SELF-CARE Instructions: Augmentin ([facility]), Otitis Media ([facility]), Urinary Anesthetic Agent ( [facility]), Urinary Tract Infection ([facility]) Additional Instructions: Return immediately for any new or worsening symptoms Followup with your primary care provider, call tomorrow to make a followup appointment Culture is pending, will call if you need any different treatment Prescriptions: Amox Tr/Potassium Clavulanate [Augmentin 875-125 Tablet] 1 tab PO BID 10 Days tablet Naproxen [Naprosyn 250 Nmg Tablet] 1 tab PO BID #14 tablet Forms: Smoking Cessation Education Referrals: [facility] [Provider Group] - Follow up as needed
[2018-03-11 15:05] LABS: APPEARANCE,URINE SLIGHTLY-CLOUDY; BILIRUBIN,URINE MODERATE (NEGATIVE); COLOR,URINE YELLOW; GLUCOSE, URINE NEGATIVE (NEGATIVE); KETONES,URINE NEGATIVE (NEGATIVE); LEUKOCYTE ESTERASE,URINE MODERATE (NEGATIVE); NITRITE,URINE POSITIVE (NEGATIVE); PROTEIN,URINE 30 mg/dL (NEGATIVE); URINE SPECIFIC GRAVITY 1.029
[2018-03-11] MEDS ORDERED: CEFTRIAXONE INJ 1000 MG VIAL IM ONE (15:25)
[2018-03-11] MEDS ORDERED: LIDOCAINE 1% INJ-PF (10 MG/ML) 30 ML SDV INJ ONE (15:25)
[2018-03-11] MEDS ORDERED: AMOXICILLIN TR/POT CLAVULANATE 500-125 MG TAB PO ONE (15:29)
[2018-03-11 16:31] VITALS: BP 105/62
== END 2018-03-11 16:32 | disposition home or self-care (01) ==
LOC: ER 13:27
DX: H66.90 Otitis media, unspecified, unspecified ear (principal); N39.0 Urinary tract infection, site not specified; F17.200 Nicotine dependence, unspecified, uncomplicated
CPT/HCPCS: 99283; 96372; 87086; 81025; 87088; 81001; 87186; J3490 ×2; J0696

== ENCOUNTER 2019-08-11 11:49 | Emergency (ER) | payer MEDICAID ==
--- NOTE | 2019-08-11 11:53 | ER Document Report ---
ED General - General Stated Complaint: DIFFICULTY BREATHING/CONGESTION Time Seen by Provider: 08/11/19 11:52 Mode of Arrival: Ambulatory Information source: Patient Notes: Patient is a 24-year-old female presenting to the emergency department chief complaint of shortness of breath. Patient states that she has not had an MDI inhaler for some time she does report continued tobacco abuse. Patient states that the shortness of breath is worse at night she is had a mild cough. Patient denies any obvious sick contacts. Patient denies fever. Patient has no other complaints at this time. TRAVEL OUTSIDE OF THE [place] IN LAST 30 DAYS: No - HPI Onset: Last week Onset/Duration: Persistent Quality of pain: No pain Severity: None Associated symptoms: Nonproductive cough, Shortness of breath. denies: Fever, Nausea, Vomiting Exacerbated by: Deep breathing Relieved by: Denies Similar symptoms previously: Yes Recently seen / treated by doctor: No - Related Data Allergies/Adverse Reactions: No Known Allergies Allergy (Verified 03/11/18 13:29) Past Medical History - General Information source: Patient - Social History Smoking Status: Current Every Day Smoker Cigarette use (# per day): Yes Chew tobacco use (# tins/day): No Smoking Education Provided: Yes Frequency of alcohol use: None Drug Abuse: None Lives with: Family Family History: Reviewed & Not Pertinent, Other - Sister with asthma Patient has suicidal ideation: No Patient has homicidal ideation: No Pulmonary Medical History: Reports: Hx Asthma Renal/ Medical History: Denies: Hx Peritoneal Dialysis Psychiatric Medical History: Reports: Hx Depression Surgical Hx: Negative - Immunizations Immunizations up to date: Yes Hx Diphtheria, Pertussis, Tetanus Vaccination: No Review of Systems - Review of Systems Notes: REVIEW OF SYSTEMS: CONSTITUTIONAL : Denies fever, chills, or sweats. Denies recent illness. EENT: Denies eye, ear, throat, or mouth pain or symptoms. Denies nasal or sinus congestion. CARDIOVASCULAR: Denies chest pain. RESPIRATORY: Per HPI GASTROINTESTINAL: Denies abdominal pain. Denies nausea, vomiting, or diarrhea. Denies constipation. GENITOURINARY: Denies difficulty urinating, painful urination, burning, frequency, or blood in urine. MUSCULOSKELETAL: Denies neck or back pain or joint pain or swelling. SKIN: Denies rash or skin lesions. HEMATOLOGIC : Denies easy bruising or bleeding. NEUROLOGICAL: Denies altered mental status or loss of consciousness. Denies headache. Denies weakness or paralysis or loss of use of either side. Denies problems with gait or speech. Denies sensory or motor loss. PSYCHIATRIC: Denies suicidal or homicidal ideations 10 Systems are negative unless otherwise specified above Physical Exam - Vital signs Vitals: Temp Pulse Resp BP Pulse Ox 98.0 F 89 16 115/74 97 08/11/19 12:02 08/11/19 12:02 08/11/19 12:02 08/11/19 12:08/11/19 12:02 - Notes Notes: PHYSICAL EXAMINATION: GENERAL: Well-appearing, well-nourished and in no acute distress. HEAD: Atraumatic, normocephalic. EYES: Pupils equal round and reactive to light, extraocular movements intact, sclera anicteric, conjunctiva are normal. ENT: nares patent, oropharynx clear without exudates. Moist mucous membranes. Tonsillar pillars are normal uvula is midline there is no erythema or edema. NECK: Normal range of motion, supple without lymphadenopathy, no appreciable JVD LUNGS: Lungs clear to auscultation bilaterally and equal. No wheezes rales or rhonchi. HEART: Regular rate and rhythm without murmurs ABDOMEN: Soft, nontender, normal bowel sounds. No guarding, no rebound. No masses appreciated. EXTREMITIES: Active full range of motion, no pitting or edema. No cyanosis. 2+ pulses x4 NEUROLOGICAL: No focal neurological deficits. Moves all extremities spontaneously and on command. SKIN: Warm, Dry, and intact. Normal turgor, no rashes or lesions noted. Course - Re-evaluation Re-evalutation: 08/11/19 12:18 Portable chest x-ray will be obtained. Patient be given MDI inhaler and use 2 puffs now patient will also receive prednisone 20 mg p.o. 08/11/19 13:55 On reevaluation the patient is resting comfortably in hospital bed. Patient was advised of the negative radiologic results from her chest x-ray. Patient will be discharged home in stable condition clinical impression of asthma exacer conrado. Patient will be given prescription for Medrol Dosepak and albuterol MDI inhaler. - Vital Signs Vital signs: Temp Pulse Resp BP Pulse Ox 98.0 F 89 16 115/74 97 08/11/19 12:02 08/11/19 12:02 08/11/19 12:02 08/11/19 12:02 08/11/19 12:02 - Diagnostic Test Radiology reviewed: Reports reviewed Discharge - Discharge Clinical Impression: Asthma exacerbation Qualifiers: Asthma severity: moderate Asthma persistence: unspecified Qualified Code(s): J45.901 - Unspecified asthma with (acute) exacerbation Condition: Stable Disposition: HOME, SELF-CARE Prescriptions: Methylprednisolone [Medrol Dosepack (4 mg/Tab) 21 Tab/Dosepak] 4 mg PO ASDIR PRN #21 tab.ds.pk PRN Reason: Albuterol Sulfate [Proair HFA Inhalation Aerosol 8.5 gm MDI] 2 puff IH Q4H PRN #1 mdi PRN Reason:
[2019-08-11] MEDS ORDERED: PREDNISONE 20 MG TABLET PO ONE (12:13)
[2019-08-11] MEDS ORDERED: ALBUTEROL SULFATE HFA (90 MCG/PUFF) 8 GM MDI (1 MDI/ER DISP) IH ONE (12:15)
[2019-08-11] MEDS ORDERED: IPRATROPIUM/ALBUTEROL 0.5-2.5 MG/3 ML AMPUL NEB ONE (12:20)
--- NOTE | 2019-08-11 13:54 | RADIOLOGY REPORT (SQ) ---
EXAM DESCRIPTION: CHEST SINGLE VIEW IMAGES COMPLETED DATE/TIME: 08/11/2019 1:36 pm REASON FOR STUDY: sob COMPARISON: None. NUMBER OF VIEWS: One view. TECHNIQUE: Single frontal radiographic view of the chest acquired. LIMITATIONS: None. FINDINGS: LUNGS AND PLEURA: No opacities, masses or pneumothorax. No pleural effusion. MEDIASTINUM AND HILAR STRUCTURES: No masses. Contour normal. HEART AND VASCULAR STRUCTURES: Heart normal in size. Normal vasculature. BONES: No acute findings. HARDWARE: None in the chest. OTHER: No other significant finding. IMPRESSION: NO SIGNIFICANT RADIOGRAPHIC FINDING IN THE CHEST. TECHNICAL DOCUMENTATION: JOB ID: [id number] 2010 [employer]- All Rights Reserved Reading location - IP/workstation name: [email or web address]
[2019-08-11 14:25] VITALS: BP 106/75
== END 2019-08-11 14:27 | disposition home or self-care (01) ==
LOC: ER 11:49
DX: J45.901 Unspecified asthma with (acute) exacerbation (principal); R06.02 Shortness of breath; R05 Cough; F17.210 Nicotine dependence, cigarettes, uncomplicated
CPT/HCPCS: 94640; 99285; 71045; J7512; J7620

== ENCOUNTER 2019-08-22 12:22 | Emergency (ER) | payer MEDICAID ==
[2019-08-22 12:27] VITALS: BP 114/75
--- NOTE | 2019-08-22 12:45 | ER Document Report ---
HPI - HPI Patient complains to provider of: UTI symptoms Time Seen by Provider: 08/22/19 12:41 Onset: Yesterday Onset/Duration: Sudden Pain Level: 5 Context: 24-year-old female past medical history significant for recurrent UTIs presents to the emergency room complaining of dysuria that started last night. Last UTI about 4 to 6 weeks ago. States she took some [id number] Azo without r elief. Denies any nausea, vomiting, no abdominal pain, no fevers, no chills. Is not followed by her primary care physician or urology for her recurrent UTIs. Denies any vaginal bleeding, no vaginal discharge. Associated Symptoms: None Exacerbated by: Denies Relieved by: Denies Similar symptoms previously: Yes Recently seen / treated by doctor: No - ROS ROS below otherwise negative: Yes - CONSTITUTIONAL Constitutional: DENIES: Fever, Chills - NEURO Neurology: DENIES: Headache - CARDIOVASCULAR Cardiovascular: DENIES: Chest pain - RESPIRATORY Respiratory: DENIES: Trouble Breathing, Coughing - GASTROINTESTINAL Gastrointestinal: DENIES: Abdominal Pain, Nausea - URINARY Urinary: REPORTS: Dysuria, Urgency, Frequency - REPRODUCTIVE Reproductive: DENIES: : - MUSCULOSKELETAL Musculoskeletal: DENIES: Back Pain - DERM Skin Color: Normal, [place] Skin Problems: None Past Medical History - General Information source: Patient - Social History Smoking Status: Never Smoker Frequency of alcohol use: None Drug Abuse: None Family History: Reviewed & Not Pertinent, Other - Sister with asthma Patient has homicidal ideation: No Pulmonary Medical History: Reports: Hx Asthma Renal/ Medical History: Denies: Hx Peritoneal Dialysis Psychiatric Medical History: Reports: Hx Depression - Immunizations Immunizations up to date: Yes Hx Diphtheria, Pertussis, Tetanus Vaccination: No Vertical Provider Document - CONSTITUTIONAL Agree With Documented VS: Yes Exam Limitations: No Limitations General Appearance: WD/WN, Mild Distress - INFECTION CONTROL TRAVEL OUTSIDE OF THE [place] IN LAST 30 DAYS: No - HEENT HEENT: Atraumatic, Normocephalic - NECK Neck: Normal Inspection, Supple - RESPIRATORY Respiratory: Breath Sounds Normal, No Respiratory Distress, Chest Non-Tender. negative: Rales, Rhonchi, Wheezing - CARDIOVASCULAR Cardiovascular: Regular Rate, Regular Rhythm. negative: No Murmur, Tachycardia, Bradycardia - GI/ABDOMEN Gastrointestinal: Abdomen Soft, Abdomen Non-Tender, No Organomegaly, Normal Bowel Sounds. negative: Hepatomegaly, Spleenomegaly, Abdominal Mass, Abnormal Bowel Sounds - BACK Back: Normal Inspection. negative: CVA Tenderness-Right, CVA Tenderness-Left - NEURO Level of Consciousness: Awake, Alert, Appropriate Motor/Sensory: No Motor Deficit, No Sensory Deficit - DERM Integumentary: Warm, Dry. negative: No Rash Course - Re-evaluation Re-evalutation: 08/22/19 13:16 Patient is afebrile, nontoxic-appearing, reviewed lab results with patient. Counseled to take antibiotics as prescribed. Counseled need to follow-up outpatient with a primary care physician for recurrent UTIs. She was given strict return to the emergency room guidelines. Return for any new or worsening symptoms. All questions were answered. Patient verbalized understanding and agrees with plan of care. - Vital Signs Vital signs: Temp Pulse Resp BP Pulse Ox 98.1 F 70 18 114/75 92 08/22/19 12:25 08/22/19 12:25 08/22/19 12:25 08/22/19 12:25 08/22/19 12:25 Discharge - Discharge Clinical Impression: UTI (urinary tract infection) Qualifiers: Urinary tract infection type: site unspecified Hematuria presence: without hematuria Qualified Code(s): N39.0 - Urinary tract infection, site not specified Condition: Stable Disposition: HOME, SELF-CARE Instructions: Nitrofurantoin ([facility]), Urinary Tract Infection ([facility]) Additional Instructions: Push fluids. Medications as prescribed. Outpatient follow-up with a primary care physician as discussed. Return for any new or worsening symptoms. Prescriptions: Nitrofurantoin Monohyd/M-Cryst [Macrobid 100 mg Capsule] 100 mg PO BID 7 Days #14 cap
[2019-08-22 13:02] LABS: APPEARANCE,URINE SLIGHTLY-CLOUDY; BILIRUBIN,URINE NEGATIVE (NEGATIVE); COLOR,URINE AMBER; GLUCOSE, URINE NEGATIVE (NEGATIVE); KETONES,URINE NEGATIVE (NEGATIVE); LEUKOCYTE ESTERASE,URINE NEGATIVE (NEGATIVE); NITRITE,URINE POSITIVE (NEGATIVE); PROTEIN,URINE 100 mg/dL (NEGATIVE); URINE SPECIFIC GRAVITY 1.026
== END 2019-08-22 13:20 | disposition home or self-care (01) ==
LOC: ER 12:22
DX: N39.0 Urinary tract infection, site not specified (principal); R30.0 Dysuria; J45.909 Unspecified asthma, uncomplicated
CPT/HCPCS: 81001; 81025; 87086; 87088; 99283

== ENCOUNTER 2019-08-29 09:20 | Emergency (ER) | payer MEDICAID ==
[2019-08-29] MEDS ORDERED: METHYLPREDNISOLONE INJ 125 MG/2 ML SDV IM ONE (10:03)
[2019-08-29] MEDS ORDERED: IPRATROPIUM/ALBUTEROL 0.5-2.5 MG/3 ML AMPUL NEB ONE ×2 (10:03→11:29)
--- NOTE | 2019-08-29 10:03 | ER Document Report ---
ED Respiratory Problem - General Chief Complaint: Shortness Of Breath Stated Complaint: SHORTNESS OF BREATH Time Seen by Provider: 08/29/19 09:44 Primary Care Provider: SUSIE MAXWELL MD [ACTIVE STAFF] - Follow up as needed Mode of Arrival: Ambulatory Information source: Patient Notes: 24-year-old female with no previous medical problems presents to the emergency room complaining of shortness of breath with wheezing that started yesterday. Patient states she was seen here August 10 for wheezing was diagnosed with bronchitis, states she was sent home on an inhaler and a Medrol Dosepak which she completed. States she lost her inhaler yesterday. She denies any recent travel, no history of DVT or PE, no COVID-19 exposure, no COVID-19 symptoms. Not on oral contraceptives. No previous history of asthma. Is a smoker. TRAVEL OUTSIDE OF THE [place] IN LAST 30 DAYS: No - Related Data Allergies/Adverse Reactions: No Known Allergies Allergy (Verified 08/29/19 09:31) Past Medical History - General Information source: Patient - Social History Smoking Status: Current Every Day Smoker Chew tobacco use (# tins/day): No Frequency of alcohol use: None Drug Abuse: None Family History: Reviewed & Not Pertinent, Other - Sister with asthma Patient has homicidal ideation: No Pulmonary Medical History: Reports: Hx Asthma Renal/ Medical History: Denies: Hx Peritoneal Dialysis Psychiatric Medical History: Reports: Hx Depression - Immunizations Immunizations up to date: Yes Hx Diphtheria, Pertussis, Tetanus Vaccination: No Review of Systems - Review of Systems Constitutional: No symptoms reported EENT: No symptoms reported Cardiovascular: No symptoms reported Respiratory: Short of breath, Wheezing Gastrointestinal: No symptoms reported Genitourinary: No symptoms reported Musculoskeletal: No symptoms reported Skin: No symptoms reported Neurological/Psychological: No symptoms reported -: Yes All other systems reviewed and negative Physical Exam - Vital signs Vitals: Temp 98.1 F 08/29/19 09:25 - General General appearance: Appears well, Alert In distress: Mild - Respiratory Respiratory status: No respiratory distress Chest status: Nontender Breath sounds: Wheezing. No: Rales, Rhonchi, Stridor Chest palpation: Normal - Cardiovascular Rhythm: Regular Heart sounds: Normal auscultation Murmur: No - Extremities General upper extremity: Normal inspection, Nontender, Normal color, Normal ROM, Normal temperature General lower extremity: Normal inspection, Nontender, Normal color, Normal ROM, Normal temperature, Normal weight bearing. No: Harlan's sign - Skin Skin Temperature: Warm Skin Moisture: Dry Skin Color: Normal Course - Re-evaluation Re-evalutation: 08/29/19 11:27 Patient is resting comfortably decreased wheezing pulse ox 90% on room air, will place patient on oxygen, labs, CT chest rule out PE 08/29/19 13:24 Patient with persistent wheezing, decreased pulse ox. Staffed case with ED physician Dr. Booker who recommends admission for hypoxemia, leukocytosis, pneumonitis versus viral respiratory illness, did speak with hospitalist Dorothy Jang who does not feel that patient meets criteria for admission. She will come down and evaluate the patient to determine if she meets criteria for admission. Blood cultures, lactic, IV azithromycin, IV magnesium were ordered. 08/29/19 15:20 Patient was seen and evaluated by Dorothy Jang [employer] decision was made that patient will be discharged home. Dorothy states she had a long conversation with the patient that she and her vital signs were stable. Pulse ox was remaining 93-94 % on room air. Patient will be discharged home on inhalers, Omeprazole for her GERD, patient will also be discharged home on azithromycin. She was given strict return to the emergency room guidelines. She is to return for any new or worsening symptoms. All questions were answered. Patient verbalized understanding and agrees with plan of care. 08/29/19 15:45 - Vital Signs Vital signs: Temp Pulse Resp BP Pulse Ox 98.1 F 87 18 120/83 90 L 08/29/19 09:31 08/29/19 11:23 08/29/19 11:33 08/29/19 11:23 08/29/19 11:33 - Laboratory Result Diagrams: 08/29/19 11:44 08/29/19 11:44 Laboratory results interpreted by me: 08/29/19 08/29/19 08/29/19 10:03 11:44 11:44 WBC 14.8 H RDW 14.3 H Lymph % (Auto) 7.9 L Absolute Neuts (auto) 12.2 H Absolute Eos (auto) 0.8 H Seg Neutrophils % 82.5 H BUN 6 L Total Protein 8.5 H Urine Ketones 20 H Ur Leukocyte Esterase TRACE H - Diagnostic Test Radiology reviewed: Reports reviewed - Consults Dorothy Jang NP Time consulted: 13:25 Reason for consultation: 08/29/19 15:47 To discuss admission Consulted provider: will come to ER Discharge - Discharge Clinical Impression: Pneumonitis, GERD (gastroesophageal reflux disease) Condition: Stable Disposition: HOME, SELF-CARE Instructions: Bronchitis With Bronchospasm (Wheezing) ([facility]), Pneumonia ([facility]), Reflux Disease (GERD) ([facility]) Additional Instructions: Medications as prescribed. You need to follow-up outpatient with a primary care physician. Return for any new or worsening symptoms. Prescriptions: Albuterol Sulfate [Albuterol Sulfate Hfa] 1 - 2 puff IH Q4HP PRN #1 hfa.aer.ad PRN Reason: Albuterol Sulfate [Ventolin 0.083% Neb 2.5 mg/3 mL Ampul] 2.5 mg NEB Q6HP PRN #120 vial.neb PRN Reason: Azithromycin 250 mg PO DAILY 4 Days #4 tablet Fluticasone Propionate [Flonase Nasal [place] 50 Mcg/[place] 16 gm] 2 sprays NASL Q12 #1 inhaler Nicotine [Nicoderm 7 mg/24 Hr Transdermal Patch] 1 patch TD DAILY #30 patch.td24 Omeprazole 40 mg PO DAILY #30 capsule. Referrals: SUSIE MAXWELL MD [ACTIVE STAFF] - Follow up as needed
--- NOTE | 2019-08-29 10:51 | RADIOLOGY REPORT (SQ) ---
EXAM DESCRIPTION: CHEST SINGLE VIEW IMAGES COMPLETED DATE/TIME: 08/29/2019 10:41 am REASON FOR STUDY: dyspnea COMPARISON: 08/11/2019. EXAM PARAMETERS: NUMBER OF VIEWS: One view. TECHNIQUE: Single frontal radiographic view of the chest acquired. RADIATION DOSE: NA LIMITATIONS: None. FINDINGS: LUNGS AND PLEURA: No opacities, masses or pneumothorax. No pleural effusion. MEDIASTINUM AND HILAR STRUCTURES: No masses. Contour normal. HEART AND VASCULAR STRUCTURES: Heart normal in size. Normal vasculature. BONES: No acute findings. HARDWARE: None in the chest. OTHER: No other significant finding. IMPRESSION: NO ACUTE RADIOGRAPHIC FINDING IN THE CHEST. TECHNICAL DOCUMENTATION: JOB ID: [id number] 2010 [employer]- All Rights Reserved Reading location - IP/workstation name: [email or web address]
[2019-08-29 11:59] LABS: ABSOLUTE BASOPHILS # (AUTO) 0.1 10^3/uL (0.0-0.2); ABSOLUTE EOSINOPHILS # (AUTO) 0.8 10^3/uL (0.0-0.6); ABSOLUTE LYMPHOCYTES (AUTO) 1.2 10^3/uL (0.5-4.7); ABSOLUTE MONOCYTES (AUTO) 0.5 10^3/uL (0.1-1.4); ABSOLUTE NEUT (AUTO) 12.2 10^3/uL (1.7-8.2); BASOPHILS % (AUTO) 0.5 % (0-2); EOSINOPHILS % (AUTO) 5.4 % (0-6); HEMATOCRIT 41.4 % (36.0-47.0); HEMOGLOBIN 14.3 g/dL (12.0-15.5); LYMPHOCYTES % (AUTO) 7.9 % (13-45); MEAN CORPUSCULAR HEMOGLOBIN 30.9 pg (27.0-33.4); MEAN CORPUSCULAR HGB CONC 34.5 g/dL (32.0-36.0); MEAN CORPUSCULAR VOLUME 89 fl (80-97); MONOCYTES % (AUTO) 3.7 % (3-13); PLATELET COUNT 348 10^3/uL (150-450); RED BLOOD COUNT 4.64 10^6/uL (3.72-5.28); RED CELL DISTRIBUTION WIDTH 14.3 % (11.5-14.0); SEGMENTED NEUTROPHILS % (AUTO) 82.5 % (42-78); TOTAL CELLS COUNTED % (AUTO) 100 %; WHITE BLOOD COUNT 14.8 10^3/uL (4.0-10.5)
[2019-08-29 12:14] LABS: ALBUMIN 4.9 g/dL (3.5-5.0); ALKALINE PHOSPHATASE 103 U/L (38-126); ANION GAP 10 (5-19); ASPARTATE AMINO TRANSFERASE 30 U/L (14-36); BILIRUBIN,DIRECT 0.1 mg/dL (0.0-0.4); BILIRUBIN,TOTAL 0.8 mg/dL (0.2-1.3); BLOOD UREA NITROGEN 6 mg/dL (7-20); CALCIUM 9.9 mg/dL (8.4-10.2); CARBON DIOXIDE 24 mmol/L (22-30); CHLORIDE 103 mmol/L (98-107); GLUCOSE 102 mg/dL (75-110); POTASSIUM 4.7 mmol/L (3.6-5.0); TOTAL PROTEIN 8.5 g/dL (6.3-8.2)
--- NOTE | 2019-08-29 12:48 | RADIOLOGY REPORT (SQ) ---
EXAM DESCRIPTION: CTA CHEST IMAGES COMPLETED DATE/TIME: 08/29/2019 12:33 pm REASON FOR STUDY: dyspnea COMPARISON: None. TECHNIQUE: CT scan of the chest performed using helical scanning technique with dynamic intravenous contrast injection. Images reviewed with lung, soft tissue and bone windows. Reconstructed coronal and sagittal MPR images reviewed. Additional 3 dimensional post-processing performed to develop Maximal Intensity Projection images (IL P). All images stored on PACS. All CT scanners at this facility use dose modulation, iterative reconstruction, and/or weight based d osing when appropriate to reduce radiation dose to as low as reasonably achievable (ALARA). [facility]: Dose Right [facility]: CareDose [facility]: Dose Right [facility]: Teradose 4D [facility]: [place] [employer] CONTRAST TYPE AND DOSE: contrast/concentration: Isovue 350.00 mg/ml; Total Contrast Delivered: 51.0 ml; Total Saline Delivered: 77.0 ml Contrast bolus adequate for pulmonary arteries and aorta. RENAL FUNCTION: None required. The patient is less than 50 years old. RADIATION DOSE: CT Rad equipment meets quality standard of care and radiation dose reduction techniq ues were employed. CTDIvol: 9.9 - 14.3 mGy. DLP: 489 mGy-cm. . LIMITATIONS: None. FINDINGS: LUNGS AND PLEURA: There are few faint scattered ground-glass opacities in the right upper lobe, right middle lobe, left upper lobe. No masses, infiltrates, or pneumothorax. No pleural effus ions or pleural calcifications. AORTA AND GREAT VESSELS: No aneurysm. No dissection. HEART: No pericardial effusion. No significant coronary artery calcifications. PULMONARY ARTERIES: No emboli visualized in the main pulmonary arteries or the segmental branches. HILAR AND MEDIASTINAL STRUCTURES: No identified masses or abnormal nodes. HARDWARE: None in the chest. UPPER ABDOMEN: No significant findings. Limited exam. THYROID AND OTHER SOFT TISSUES: No masses. No adenopathy. BONES: No acute or significant finding. 3D MIPS: Confirm above findings. OTHER: No other significant finding. IMPRESSION: 1. NORMAL CTA OF THE CHEST. NO PULMONARY EMBOLI. 2. FEW FAINT SCATTERED GROUND-GLASS OPACITIES, NONSPECIFIC. MAY BE DUE TO PNEUMONITIS OR POSSIBLY RAL INFECTION. COMMENT: Quality ID # [id number]: Final reports with documentation of one or more dose reduction techniques (e.g., Automated exposure control, adjustment of the mA and/or kV according to patient size, use of iterative reconstruction technique) TECHNICAL DOCUMENTATION: JOB ID: [id number] 2010 [email or web address]- All Rights Reserved Reading location - IP/workstation name: [email or web address]
[2019-08-29 12:50] LABS: APPEARANCE,URINE CLOUDY; BILIRUBIN,URINE NEGATIVE (NEGATIVE); COLOR,URINE AMBER; GLUCOSE, URINE NEGATIVE (NEGATIVE); KETONES,URINE 20 mg/dL (NEGATIVE); LEUKOCYTE ESTERASE,URINE TRACE (NEGATIVE); NITRITE,URINE NEGATIVE (NEGATIVE); PROTEIN,URINE NEGATIVE (NEGATIVE); URINE SPECIFIC GRAVITY 1.019; UROBILINOGEN,URINE NEGATIVE mg/dL (<2.0)
[2019-08-29] MEDS ORDERED: AZITHROMYCIN INJ 500 MG VIAL IV ONE (13:08)
[2019-08-29] MEDS: MAGNESIUM SULFATE/D5W 1 GM/100 ML RTUPB IV SCH (13:47)
[2019-08-29] MEDS ORDERED: ALBUTEROL SULFATE 0.083% NEB 2.5 MG/3 ML AMPUL NEB ONE (15:15)
--- NOTE | 2019-08-29 16:07 | PDOC CONSULTATION ---
Consultation Consult Date: 08/29/19 Provider Consulted: INNA W[place] Consult reason:: dyspnea, hypoxia History of Present Illness Patient complains of: shortness of breath History of Present Illness: JODIE MONTERO is a 24 year old female with a past medical history significant for tobacco dependence with continuous use, prior aspiration pneumonia (requiring prolonged hospital stay; not intubated) and polysubstance abuse (remote per patient) who presented to the emergency room today with a complaint of ongoing shortness of breath and wheezing not especially exacerbated by activity, ongoing for greater than 6 weeks. She was seen in the emergency department for the same on August 10 and prescribed a Medrol Dosepak and albuterol inhaler. She reports that her symptoms were improved while on the steroid taper, but as the dose assist, her symptoms gradually returned. She also describes clear rhinorrhea and frontal headaches that worsen with cough/sneeze, and bending over. On further discussion, she admits to waking 3-4 times a week with clear reflux symptoms (dyspepsia, taste in her mouth, and nausea). Evaluation emergency department revealed normal vital signs other than borderline low oxygen saturations; initially 90% on room air. Following IV magnesium, steroid therapy, and albuterol treatments, she was maintaining room air oxygen saturations of 94% while speaking in full sentences to me during our discussion. She was found to have leukocytosis with WBC 14.8, unremarkable chemistry, normal lactic acid, and benign urinalysis. Chest x-ray was negative for acute findings. Chest CTA failed a few faint sc attered groundglass opacities to the right upper lobe right middle lobe and left upper lobe possibly due to pneumonitis or possible viral infection. She was referred to the hospitalist service for evaluation for admission. Past Medical History Cardiac Medical History: Reports: None Pulmonary Medical History: Reports: Asthma, Pneumonia EENT Medical History: Reports: None Neurological Medical History: Reports: None Endocrine Medical History: Reports: None Renal/ Medical History: Reports: None Malignancy Medical History: Reports: None GI Medical History: Reports: Gastroesophageal Reflux Disease Musculoskeltal Medical History: Reports: None Skin Medical History: Reports: None Psychiatric Medical History: Reports: Depression, Tobacco Dependency Traumatic Medical History: Reports: None Hematology: Reports: None Infectious Medical History: Reports: None Social History Information Source: Patient Smoking Status: Current Every Day Smoker Cigarettes Packs Per Day: 1 Electronic Cigarette use?: No Frequency of Alcohol Use: None Hx Recreational Drug Use: Yes Drugs: Heroin Hx Prescription Drug Abuse: No - Advance Directive Resuscitation Status: Full Code Family History Family History: Reviewed & Not Pertinent, Other - Sister with asthma Parental Family History Reviewed: Yes Children Family History Reviewed: Yes Sibling(s) Family History Reviewed.: Yes Medication/Allergy Home Medications: Albuterol Sulfate [Albuterol Sulfate Hfa] 1 - 2 puff IH Q4HP PRN #1 hfa.aer.ad 08/29/19 Albuterol Sulfate [Ventolin 0.083% Neb 2.5 mg/3 mL Ampul] 2.5 mg NEB Q6HP PRN #120 vial.neb 08/29/19 Fluticasone Propionate [Flonase Nasal [place] 50 Mcg/[place] 16 gm] 2 sprays NASL Q12 #1 inhaler 08/29/19 Nicotine [Nicoderm 7 mg/24 Hr Transdermal Patch] 1 patch TD DAILY #30 patch.td24 08/29/19 Omeprazole 40 mg PO DAILY #30 capsule. 08/29/19 Allergies/Adverse Reactions: No Known Allergies Allergy (Verified 08/29/19 09:31) Review of Systems Constitutional: ABSENT: chills, fever(s), headache(s), weight gain, weight loss Eyes: ABSENT: visual disturbances Ears: ABSENT: hearing changes Cardiovascular: ABSENT: chest pain, dyspnea on exertion, edema, orthropnea, palpitations Respiratory: PRESENT: cough - Posttussive emesis, dyspnea. ABSENT: hemoptysis Gastrointestinal: ABSENT: abdominal pain, constipation, diarrhea, hematemesis, hematochezia, nausea, vomiting Genitourinary: ABSENT: dysuria, hematuria Musculoskeletal: ABSENT: joint swelling Integumentary: ABSENT: rash, wounds Neurological: ABSENT: abnormal gait, abnormal speech, confusion, dizziness, focal weakness, syncope Psychiatric: ABSENT: anxiety, depression, homidical ideation, suicidal ideation Endocrine: ABSENT: cold intolerance, heat intolerance, polydipsia, polyuria Hematologic/Lymphatic: ABSENT: easy bleeding, easy bruising Physical Exam Vital Signs: Temp Pulse Resp BP Pulse Ox 98.1 F 87 18 120/83 90 L 08/29/19 09:31 08/29/19 11:23 08/29/19 11:33 08/29/19 11:23 08/29/19 11:33 Intake & Output 08/28/19 08/29/19 08/30/19 06:59 06:59 06:59 Intake Total 0 Balance 0 Weight 61.4 kg General appearance: PRESENT: no acute distress, cooperative, well-developed, well-nourished Head exam: PRESENT: atraumatic, normocephalic Eye exam: PRESENT: conjunctiva pink, EOMI, PERRLA. ABSENT: scleral icterus Ear exam: PRESENT: normal external ear exam Mouth exam: PRESENT: moist, tongue midline Respiratory exam: PRESENT: symmetrical, unlabored, wheezes. ABSENT: rales, rhonchi Cardiovascular exam: PRESENT: RRR. ABSENT: diastolic murmur, rubs, systolic murmur Pulses: PRESENT: normal dorsalis pedis pul Vascular exam: PRESENT: normal capillary refill Extremities exam: PRESENT: full ROM. ABSENT: calf tenderness, clubbing, pedal edema Neurological exam: PRESENT: alert, awake, oriented to person, oriented to place, oriented to time, oriented to situation, CN II-XII grossly intact. ABSENT: motor sensory deficit Psychiatric exam: PRESENT: appropriate affect, normal mood. ABSENT: homicidal ideation, suicidal ideation Skin exam: PRESENT: dry, intact, warm. ABSENT: cyanosis, rash Results Laboratory Results: 08/29/19 11:44 08/29/19 11:44 08/29/19 08/29/19 08/29/19 10:03 11:44 11:44 WBC 14.8 H RBC 4.64 Hgb 14.3 Hct 41.4 MCV 89 MCH 30.9 MCHC 34.5 RDW 14.3 H Plt Count 348 Seg Neutrophils % 82.5 H Sodium 137.2 Potassium 4.7 Chloride 103 Carbon Dioxide 24 Anion Gap 10 BUN 6 L Creatinine 0.53 Est GFR ( Amer) > 60 Glucose 102 Lactic Acid Calcium 9.9 Magnesium Total Bilirubin 0.8 AST 30 Alkaline Phosphatase 103 Total Protein 8.5 H Albumin 4.9 Urine Color ELIZA Urine Appearance CLOUDY Urine pH 5.0 Ur Specific [place]ullen 1.019 Urine Protein NEGATIVE Urine Glucose (UA) NEGATIVE Urine Ketones 20 H Urine Blood NEGATIVE Urine Nitrite NEGATIVE Ur Leukocyte Esterase TRACE H Urine WBC (Auto) 7 Urine RBC (Auto) 1 08/29/19 08/29/19 11:44 13:20 WBC RBC Hgb Hct MCV MCH MCHC RDW Plt Count Seg Neutrophils % Sodium Potassium Chloride Carbon Dioxide Anion Gap BUN Creatinine Est GFR ( Amer) Glucose Lactic Acid 0.9 Calcium Magnesium 2.1 Total Bilirubin AST Alkaline Phosphatase Total Protein Albumin Urine Color Urine Appearance Urine pH Ur Specific Mullen Urine Protein Urine Glucose (UA) Urine Ketones Urine Blood Urine Nitrite Ur Leukocyte Esterase Urine WBC (Auto) Urine RBC (Auto) Impressions: Chest X-Ray 08/29/19 10:01 IMPRESSION: NO ACUTE RADIOGRAPHIC FINDING IN THE CHEST. Chest/Abdomen CTA 08/29/19 11:28 IMPRESSION: 1. NORMAL CTA OF THE CHEST. NO PULMONARY EMBOLI. 2. FEW FAINT SCATTERED GROUND-GLASS OPACITIES, NONSPECIFIC. MAY BE DUE TO PNEUM ONITIS OR POSSIBLY VIRAL INFECTION. Assessment and Plan - Diagnosis (1) Reactive airway disease Qualifiers: Asthma severity: mild Asthma persistence: persistent Asthma complication type: with acute exacerbation Qualified Code(s): J45.31 - Mild persistent asthma with (acute) exacerbation Is this a current diagnosis for this admission?: Yes Plan: Patient was 6 weeks of dyspnea, nonproductive cough, and wheeze. Reports that her symptoms were improved during steroid taper earlier this month. Saturations 90% on room air prior to ED interventions; following nebs, steroids, and magnesium, maintaining oxygen saturations of 94%. Likely multifactorial secondary to viral illness, uncontrolled reflux, sinusitis, and continued tobacco use. Recommend albuterol nebs prn while at home (has nebulizer machine) and HFA for when away from home. Repeat steroid sinan. Start PPI. Flonase. May consider macrolide antibiotic for anti-inflammatory properties. No definitive indication for abx, will defer to ED provider. Nicotine patch; MUST stop smoking. Return to the ED for any worsening symptoms. Discussed in detail with patient. Asked if she felt comfortable going home with the above mentioned plan; she stated "that sounds good." Offered observational admission; patient confirmed comfort with d/c. She was strongly encouraged to return for any worsening symptoms. (2) Viral URI Is this a current diagnosis for this admission?: Yes Plan: Chest x-ray and CTA negative for infiltrates suggestive of bacterial pneumonia at this time. WBCs are elevated to 14. However, patient has been afebrile with symptoms of dyspnea, wheezing, and nonproductive cough only. No sick contacts. Recommend symptom management. May consider COVID19 or Influenza testing; though low suspicion given lack of fever and prolonged course (sx lasting >6weeks). It is possible that the patient had a viral infection which has led to a viral pneumonitis as the source of her ongoing wheezing. (3) Pneumonitis Is this a current diagnosis for this admission?: Yes Plan: Suspicion for pneumonitis on CTA chest. Patient previously admitted to the hospital for aspiration pna and reports a significant amount of reflux (wakes w/ reflux symptoms 3-4 times a week). Recommend repeat steroid taper and starting on PPI. Reflux precautions at home (do not eat immediately prior to lying down, elevate head of bed 1 to 2 inches, discontinue smoking, avoid alcohol and caffeine products). (4) Sinusitis Qualifiers: Sinusitis location: frontal Chronicity: subacute Qualified Code(s): J01.10 - Acute frontal sinusitis, unspecified Is this a current diagnosis for this admission?: Yes Plan: Pt reports clear rhinorrhea with frontal headache. Sinusitis is possible source of leukocytosis and may also be contributing to the patients reactive airway disease. Recommend Flonase. May consider antibiotic therapy; will defer to ED provider. (5) GERD (gastroesophageal reflux disease) Is this a current diagnosis for this admission?: Yes Plan: Start twice daily omeprazole. Reflux precautions at home (do not eat immediately prior to lying down, elevate head of bed 1 to 2 inches, discontinue smoking, avoid alcohol and caffeine products). (6) Leukocytosis Is this a current diagnosis for this admission?: Yes (7) Tobacco abuse Is this a current diagnosis for this admission?: Yes Plan: Smoking cessation encouraged. Nicotine replacement therapies provided. - Time Time Spent with patient: 35 or more minutes Smoking Cessation Education: 3 to 10 minutes Medications reviewed and adjusted accordingly: Yes Anticipated discharge: Home
[2019-08-29 16:44] VITALS: BP 127/71
== END 2019-08-29 16:44 | disposition home or self-care (01) ==
LOC: ER 09:20
DX: Z03.818 Encounter for observation for suspected exposure to other biological agents ruled out (principal); J18.9 Pneumonia, unspecified organism; J45.31 Mild persistent asthma with (acute) exacerbation; R09.02 Hypoxemia; R51 Headache; K21.9 Gastro-esophageal reflux disease without esophagitis; F17.200 Nicotine dependence, unspecified, uncomplicated
CPT/HCPCS: 94640 ×2; 99285; 96365; 96366; 96368; 36415; 87040; 83605; 83735; 85025; 87635; 81025; 80053; 81001; 71045; 71275; J2930; J3475; J0456; J7620